=== PATIENT | female | born 1955 | race Caucasian/White ===

== ENCOUNTER 2016-12-10 12:09 | Outpatient (CLI) | payer OTHER ==
[~2016-12-10 12:09] MED LIST: HYCET1 ML PO; LEVOTHYROXINE100 MCG PO; MULTIPLE VITAMIN PO; VITAMIN D-31000 UNIT PO
--- NOTE | 2016-12-10 13:24 | DIAGNOSTIC IMAGING REPORT ---
PROCEDURE: US LTD BREAST ULTRASOUND - RT INDICATION: Follow-up neoplastic right breast / axillary malignant nodule (biopsy 08/29/2016). TECHNIQUE: High resolution ribera scale and color Doppler sonographic images of the right breast and axilla breast. COMPARISON: Comparison is made to right breast ultrasound on 07/29/2016. FINDINGS: There has been minimal increase in a 6 x 6 x 4 mm ovoid nodule in the right axilla (previously 6 x 5 x 4 mm) There has been minimal increase in a 10 x 7 x 4 mm ovoid in the upper right breast (previously 9 x 8 x 5 mm). IMPRESSION: 1. There has been minimal increase in 6 x 6 x 4 mm nodule in the right axilla. 2. There has been minimal increase in 10 x 7 x 4 mm nodule in the upper right breast. RESULT CODE: 6- Known cancer. A. A negative report should not delay biopsy if a dominant or clinically suspicious mass is present. 10-15% of cancers are not identified by x-ray. B. A negative report may reinforce clinical impression. C. Adenosis and dense breasts may obscure an underlying neoplasm. D. False positive reports average 6-10%. E.. A yearly screening mammogram is recommended. A reminder letter will be scheduled.
[2016-12-25] MEDS ORDERED: PROBIOTI1 PO (08:22)
[2016-12-25] MEDS ORDERED: IBUPROFEN600 MG PO (08:22)
== END 2016-12-10 23:00 ==
LOC: US SRH 12:09
DX: R22.9 Localized swelling, mass and lump, unspecified (principal)

== ENCOUNTER 2016-12-20 12:55 | Outpatient (CLI) | payer OTHER ==
--- NOTE | 2016-12-24 10:50 | DIAGNOSTIC IMAGING REPORT ---
PROCEDURE: US NONVASCULAR EXTREMITY-RIGHT INDICATION: History of right mastectomy with recently two metastatic right axillary lesions or lymph nodes. New palpable area in the upper axilla. The patient is scheduled to undergo axillary dissection next week (Dr. Garrison). TECHNIQUE: Parrish scale and color Doppler sonographic images of the right axilla were obtained COMPARISON: Comparison is made to right breast ultrasound studies 12/10/2016 and 07/29/2016. Comparison is also made to outside PET CT study from [facility] on 09/13/2016. FINDINGS: There is a 6 mm ovoid hypoechoic nodule in the upper right axilla which is similar in appearance to the previously documented metastatic lesions in the right upper breast/axilla. This correlates with minimal uptake on recent PET CT. There has been mild increase in 9 mm metastatic nodule in the lower right axilla (previously 6 mm). There has been minimal increase in 11 mm metastatic nodule in the upper right breast/lower axilla (previously 10 mm).. IMPRESSION: 1. There is a 6 mm ovoid nodule in the upper right axilla which is suspicious for a third metastatic lesion. 2. There has been mild increase in 8 mm metastatic nodule in the lower right axilla (previously 6 mm). 3. There has been minimal increase in 11 mm metastatic nodule in the upper right breast/lower axilla (previously 10 mm). 4. Findings discussed with the patient and called to Dr. Garrison (as requested).
[2016-12-25] MEDS ORDERED: IBUPROFEN600 MG PO (08:22)
[2016-12-25] MEDS ORDERED: PROBIOTI1 PO (08:22)
== END 2016-12-20 23:00 ==
LOC: US SRH 12:55
DX: C77.3 Secondary and unspecified malignant neoplasm of axilla and upper limb lymph nodes (principal); Z85.3 Personal history of malignant neoplasm of breast

== ENCOUNTER 2016-12-26 07:10 | Day surgery (SDC) | payer OTHER ==
[~2016-12-26] VITALS: Ht 167.6 cm; Wt 59.2 kg
[~2016-12-26 07:10] MED LIST changes: +IBUPROFEN600 MG PO; +PROBIOTI1 PO
--- NOTE | 2016-12-26 07:34 | NUR ---
PRE OP INSTRUCTIONS GIVEN AND SAFETY ISSUES DISCUSSED PT HAD QUESTIONS ANSWERED PT CONFIRMED PROCEDURE PT VERIFIED SIGNATURE PT MARKED SITE DR HUGHES WAS IN TO SEE PT AND EXPLAINED PROCEDURE
[2016-12-26] MEDS ORDERED: PERCOCET1 TA1 PO (10:56)
--- NOTE | 2016-12-26 10:57 | Provider's Discharge Care Plan ---
Problem, Goal, Plan Problem List 1. S/P RIGHT MODIFIED MASTECTOMY Goals: Diagnostic testing, Improve disease control, Therapeutic intervention Instructions: Follow up as directed, Take meds as directed, NAVA BULB CARE, AND SLING/SWATH RIGHT ARM 07/04
--- NOTE | 2016-12-26 12:10 | NUR ---
RETURNED FROM PACU. AWAKE AND FEELING COOL; WARM BLANKETS APPLIED. RT ARM SLING ON. REPORTS FEELING HUNGRY AND THIRSTY. HOB ELEVATED 45 DEGREES.
--- NOTE | 2016-12-26 14:35 | OPERATIVE REPORT ---
DATE OF SURGERY: 12/26/2016 SURGEON: Donell Garrison III, MD SSDS MK 2 ADVANCED OPERATOR: None. PREOPERATIVE DIAGNOSIS: 1. Recurrent incisional adenocarcinoma of the breast, right POSTOPERATIVE DIAGNOSIS: 1. Recurrent incisional adenocarcinoma of the breast, right PROCEDURE PERFORMED: 1. Right modified radical mastectomy. ANESTHESIA: General endotracheal. ESTIMATED BLOOD LOSS: None. FLUIDS: 800 mL lactated Ringers. PATHOLOGY SPECIMEN: Right breast and axillary contents. INDICATIONS: A 61-year-old female who underwent lumpectomy and sentinel node biopsy, 2000 for stage IIA right breast cancer, ER negative, IA negative, HER-2 positive at that time. In 12/2015, she presented with recurrent scar in the right axilla. She declined any therapy at that point. Subsequently, underwent biopsy in May and August of 2016. Biopsies at that time both were positive. She is presently undergoing neoadjuvant chemotherapy and since she started her treatment, she has developed several nodules in the area of the axilla along the scar tissue. After a lengthy discussion with the patient, she has opted to proceed with modified radical mastectomy. SURGICAL FINDINGS: The patient was noted to have a 1 cm nodule superior to her incision scar in the axilla just at the anterior axillary line. There was no gross evidence of recurrence. In the axilla, there was minimal tissue, minimal lymph nodes identified. Multiple clips and sutures identified in the area of the axillary vein. SURGICAL TECHNIQUE: The patient was brought to the operating room and placed in the dorsal supine position where she underwent general endotracheal anesthesia by the anesthesiology department. After proper anesthesia had taken effect, the patient 's right upper extremity was abducted from her side. The area of right anterior chest, axilla, upper arm, supraclavicular region and neck were prepped using Betadine and draped in a sterile fashion. Using a marking pen, the extent of our excision cephalad and caudad were drawn on the patient's chest to include the scar tissue of the axilla. This area was then infiltrated using local anesthetic. An incision was made along the outer limits of our marking down to subcutaneous tissue. Using electrocautery, we were able then to create our superior flap just inferior to the clavicle on the right, medial to the lateral border of the sternum and inferior to the lower abdomen. The breast was then delivered from medial to lateral, taking the fascia off the pectoralis muscle. In the process of dissecting the breast off the pectoralis, we were able to take all the fascia and fat off the serratus dissecting into the axilla, taking any residual fatty tissue up to the subclavian vein. It should be noted that numerous clips were identified along our dissection in the axilla, most of the nodes having already been taken from her previous surgery. Dissection continued onto the latissimus dorsi where the specimen was removed and handed off the field. Hemostasis achieved using electrocautery. The wound was irrigated copiously with warm normal saline. Two Matt-Andersen drains were placed, one across the pectoralis and the other in the axilla bringing them out the inferior aspect of her lateral chest securing them with 3-0 nylon. The skin edges, after developing our flaps, were approximated using 2-0 Polysorb subcuticular suture in an interrupted fashion. The skin further approximated using 4-0 subdermal Polysorb and Steri- Strips. A sterile pressure occlusive dressing was placed over the site. The patient was placed in an Usman wrap and a sling and swath. Her Matt-Andersen drains were attached to bulb suction.
--- NOTE | 2016-12-26 15:02 | NUR ---
1405-PT RESTING SON AT BEDSIDE. VITALS STABLE BUT O2 SATS RUNNING AROUND 94% ON 2L O2 NC. DENIES ANY SEVERE PAIN OR NAUSEA, STILL VERY SLEEPY & TOLERATED SMALL AMT OF PO WELL. INCENTIVE SPIROMETER AT BEDSIDE & PT USING INSTRUCTED. IV RUNNING WELL & NAVA DRAINS X2 DRAINING SEROSANG FLUID.
--- NOTE | 2016-12-26 15:08 | NUR ---
PT STILL VERY SLEEPY, SON AT BEDSIDE. O2 SATS STILL RUNNING AROUND 94% ON 2L O2 NC. PT REPORTS THAT SHE HAS LARGE DOGS AT HOME THAT JUMP ALL OVER HER & DOESN'T HAVE A BED WITH A HEAD THAT RAISES SO SHE DOESN'T FEEL READY TO GO HOME YET. DR. HUGHES NOTIFIED & PT WILL BE ADMITTED OVER NIGHT.
--- NOTE | 2016-12-26 15:49 | NUR ---
PT TX TO AC VIA STRETCHER WITH BELONGINGS. VSS
[2016-12-26 16:03] VITALS: BP 137/79
[2016-12-26 16:15] VITALS: BP 122/77
[2016-12-26 16:30] VITALS: BP 117/79
[2016-12-26 16:45] VITALS: BP 128/79
[2016-12-26 22:40] VITALS: BP 127/67
--- NOTE | 2016-12-27 00:16 | NUR ---
AMBULATING IN HALLWAY, BARBER WRAP DRESSING ON CHEST CDI, 2 NAVA DRAINS IN PLACED WITH SCANT AMOUNT SERSANGUINEOUS DRAINAGE. KUNAL ON SLING. STATES PAIN 3/10 AT THIS TIME.
[2016-12-27 02:39] VITALS: BP 131/73
--- NOTE | 2016-12-27 05:36 | NUR ---
ABLE TO SLEEP IN BETWEEN AMBULATION SCHEDULE. CHEST DRESSING CDI.
[2016-12-27 06:42] VITALS: BP 143/73
--- NOTE | 2016-12-27 10:08 | NUR ---
PT OOB AD HATTIE. DRESSING TO CHEST AN ACEWRAP, CDI. RUE PLACED IN SLING AND SECURED. ABLE TO MOVE RIGHT HAND WITH NO PAIN AND SHE EXERCISES IT FREQUENTLY. EDUCATED ON HOW TO STRIP, DRAIN AND RECORD NAVA DRAINS. NEW MEASURING CUP AND FLOW SHEET GIVEN. WENT OVER DC INSTRUCTIONS, GAVE PRESCRIPTION AND EDUCATION ON CURRENT DIAGNOSIS. PT STATED UNDERSTANDING. ESCORTED OUT VIA WC TO PRIVATE CAR HOME.
== END 2016-12-27 09:35 | disposition home or self-care (01) ==
LOC: SDC SRH 07:10 → SCU SRH 07:11 → SDC SRH 08:45 → EDSTATUS 08:45 → ACUTE2 SRH 15:57 → SDC SRH 12-27 09:35
PROVIDERS: Specialist
PROC: 0HTT0ZZ Resection of Right Breast, Open Approach (ICD-10-PCS; principal; 2016-12-26 08:45)
DX: C44.591 Other specified malignant neoplasm of skin of breast (principal); Z72.0 Tobacco use